=== PATIENT | male | born 1990 | race Hispanic/Latino ===

== ENCOUNTER 2016-10-06 23:42 | Emergency (ER) | payer SELFPAY ==
[~2016-10-06] VITALS: Ht 162.6 cm; Wt 93.6 kg
[~2016-10-06 23:42] MED LIST: (None)3.5 GM OP; AMOXICILLIN500 MG PO; GENTAMICIN15 ML/BTL OP; MEDDOSEPAK PO; NO; NO HOME MEDS; ULTRAM50 M1 PO
[2016-10-07] MEDS ORDERED: PERCOCET 5/325M1 TAB PO (03:34)
[2016-10-07 03:55] VITALS: BP 140/77
== END 2016-10-07 04:12 | disposition home or self-care (01) | DRG 605 ==
LOC: ED 23:42
DX: S00.83XA Contusion of other part of head, initial encounter (principal); S02.32XA Fracture of orbital floor, left side, initial encounter for closed fracture; H11.32 Conjunctival hemorrhage, left eye; W22.8XXA Striking against or struck by other objects, initial encounter; Y93.H2 Activity, gardening and landscaping; Y92.007 Garden or yard of unspecified non-institutional (private) residence as the place of occurrence of the external cause